=== PATIENT | female | born 1955 | race Caucasian/White ===

== ENCOUNTER → 2020-02-15 10:21 | Outpatient (CLI) | payer OTHER, SELFPAY ==
--- NOTE | ~2020-02-15 | MM_ITS ---
EXAMINATION: MM screening epifanio BI w devi HISTORY: Screening mammogram TECHNIQUE: Craniocaudal and mediolateral oblique 3-D tomosynthesis images were obtained and synthetic 2-D images were generated. CAD analysis was submitted and interpreted. COMPARISON: 10/25/2018 bilateral digital screening mammogram 08/01/2017 bilateral diagnostic digital mammogram 07/22/2017, 06/22/2016 bilateral digital screening mammogram examinations BREAST PARENCHYMAL COMPOSITION: There are scattered areas of fibroglandular density. FINDINGS: Stable fibroglandular asymmetry since 06/22/2016. Scattered numerous bilateral benign-appear ing calcifications. There is no evidence of suspicious mass, calcification, or architectural distorti on to suggest malignancy in either breast. There has been no suspicious interval change. IMPRESSION: 1. No mammographic evidence of malignancy. 2. Recommend routine screening mammography in one year. BI-RADS Category 2: Benign finding(s). Reviewed, dictated and finalized at location A.
== END ==
PROVIDERS: Visit Provider Obstetrics & Gynecology
DX: Z12.31 Encounter for screening mammogram for malignant neoplasm of breast (principal)
CPT/HCPCS: 77063; 77067

== ENCOUNTER → 2021-04-17 09:59 | Outpatient (CLI) | payer MEDICARE, SELFPAY ==
--- NOTE | ~2021-04-17 | MM_ITS ---
EXAMINATION: MM screening epifanio BI w devi HISTORY: Screening mammogram TECHNIQUE: Craniocaudal and mediolateral oblique 3-D tomosynthesis images were obtained and synthetic 2-D images were generated. CAD analysis was submitted and interpreted. COMPARISON: , 10/25/2018, 08/01/2017 bilateral digital screening mammogram examinations BREAST PARENCHYMAL COMPOSITION: There are scattered areas of fibroglandular density. FINDINGS: Stable fibroglandular asymmetry. Occasional benign calcifications. There is no evidence of suspicious mass, calcification, or architectural distortion to suggest malignancy in either breast. T here has been no suspicious interval change. IMPRESSION: 1. No mammographic evidence of malignancy. 2. Recommend routine screening mammography in one year. BI-RADS Category 2: Benign finding(s). Reviewed, dictated and finalized at location A.
== END ==
PROVIDERS: Visit Provider Obstetrics & Gynecology
DX: Z12.31 Encounter for screening mammogram for malignant neoplasm of breast (principal)
CPT/HCPCS: 77063; 77067

== ENCOUNTER → 2022-06-22 10:15 | Outpatient (CLI) | payer MEDICARE, SELFPAY ==
--- NOTE | ~2022-06-22 | MM_ITS ---
EXAMINATION: MM screening epifanio BI w devi HISTORY: Screening mammogram TECHNIQUE: Craniocaudal and mediolateral oblique 3-D tomosynthesis images were obtained and synthetic 2-D images were generated. CAD analysis was submitted and interpreted. COMPARISON: 04/17/2021, 02/15/2020, 10/25/2018 bilateral screening mammogram examinations BREAST PARENCHYMAL COMPOSITION: There are scattered areas of fibroglandular density. FINDINGS: 11 mm circumscribed mass is noted in the lower mid left breast at 6:00 (craniocaudal Tomosy nthesis image 13/79. Approximately 7 mm circumscribed mass is noted anteriorly in the inner mid left breast (craniocaudal Tomosynthesis image 45/79). Diagnostic left mammogram and left breast ultrasound examination are recommended No suspicious mass or significant new or developing density of either breast is noted otherwise. Scat tered bilateral benign calcifications. IMPRESSION: 1. Left breast masses 2. Diagnostic left mammogram and left breast ultrasound examination are recommended. BI-RADS Category 0: Incomplete: Needs additional imaging evaluation. Reviewed, dictated and finalized at location A. IMPRESSION: 1. Left breast masses 2. Diagnostic left mammogram and left breast ultrasound examination are recomme nded. BI-RADS Category 0: Incomplete: Needs additional imaging evaluation.
== END ==
PROVIDERS: PCP Family Medicine; Visit Provider Obstetrics & Gynecology
DX: Z12.31 Encounter for screening mammogram for malignant neoplasm of breast (principal); R92.8 Other abnormal and inconclusive findings on diagnostic imaging of breast
CPT/HCPCS: 77063; 77067

== ENCOUNTER → 2022-06-24 08:07 | Outpatient (CLI) | payer MEDICARE, SELFPAY ==
--- NOTE | ~2022-06-24 | MMUS_ITS ---
EXAMINATION: MM diagnostic epifanio LT w devi, US breast LT complete HISTORY: Left breast masses reported on 06/22/2022 screening mammogram examination TECHNIQUE: Additional 3-D tomosynthesis images of the left breast were performed and synthetic 2-D im ages were generated. CAD analysis was submitted and interpreted. High resolution complete left breast ultrasound including all 4 quadrants and subareolar area was performed. COMPARISON: 06/22/2022 bilateral screening mammogram FINDINGS: MAMMOGRAPHIC FINDINGS: There is heterogeneously dense stroma which partially obscures one or more masses, including 11 mm pa rtially circumscribed mass in the anterior aspect of the lower outer left breast (coned MLO Tomosynth esis image 22/70).. ULTRASOUND: There are multiple scattered simple and complicated cysts, with circumscribed margins, through transm ission, the largest situated at 6:00 0.5 cm from the nipple, measuring up to 1.3 cm approximate maxim al dimension. No suspicious mass or shadowing is detected. IMPRESSION: 1. Benign findings 2. Routine annual mammographic screening is recommended BI-RADS Category 2: Benign finding(s). Reviewed, dictated and finalized at location A. IMPRESSION: 1. Benign findings 2. Routine annual mammographic screening is recommended BI-RADS Category 2: Benign finding(s).
== END ==
PROVIDERS: PCP Family Medicine; Visit Provider Obstetrics & Gynecology
DX: R92.8 Other abnormal and inconclusive findings on diagnostic imaging of breast (principal)
CPT/HCPCS: 76641; 77061; 77065; G0279

== ENCOUNTER 2023-01-11 10:11 | Outpatient (CLI) | payer MEDICARE, SELFPAY ==
[2023-01-11 11:01] LABS: Kit Draw Collected
== END 2023-01-11 10:12 | disposition home or self-care (01) ==
LOC: ANHGOSHLAB 10:13
PROVIDERS: PCP Family Medicine; Visit Provider Family Medicine
DX: E78.5 Hyperlipidemia, unspecified (principal); R73.03 Prediabetes; I10 Essential (primary) hypertension; E66.9 Obesity, unspecified
CPT/HCPCS: 36415

== ENCOUNTER → 2023-06-24 14:38 | Outpatient (CLI) | payer MEDICARE, SELFPAY ==
--- NOTE | ~2023-06-24 | DEXA_ITS ---
Bone Density Report Name: SILVINO KLEIN Age: 68 Sex: Female Ethnicity: White Date of : 1955 Indication: postmenopausal; screening for osteoporosis; height loss; prior fracture; Referring Provider: LOTTIE MONTES Study: Bone densitometry was performed. Exam Date: June 24, 2023 Accession number: [id number] Bone Density: Region BMD T-score Z-score Classification AP Spine (L1, L2, L4) 1.169 1.2 3.2 Normal Femoral Neck (Left) 0.786 -0.6 1.1 Normal Total Hip (Left) 0.959 0.1 1.5 Normal Femoral Neck (Right) 0.779 -0.6 1.1 Normal Total Hip (Right) 0.923 -0.2 1.2 Normal Total Hip Mean 0.941 -0.1 1.4 Normal World Health Organization criteria for BMD impression classify patients as: Normal (T-score at or above -1.0), Osteopenia (T-score between -1.0 and -2.5), or Osteoporosis (T-score at or below -2.5). 10-year Fracture Risk: FRAX not reported because: All T-scores for Spine Total, Hip Total, Femoral Neck at or above -1.0 Previous Exams: Region Exam Age BMD T-score BMD Change BMD Change Date g/cm2 vs Baseline vs Previous AP Spine(L1, L2, L4) 06/24/2023 68 1.169 1.2 0.110 0.110 05/03/2013 58 1.059 0.2 Total Hip(Left) 06/24/2023 68 0.959 0.1 0.056 0.056 05/03/2013 58 0.903 -0.3 Total Hip(Right) 06/24/2023 68 0.923 -0.2 0.082 0.082 05/03/2013 58 0.841 -0.8 *Denotes significance at 95% confidence level, LSC for AP Spine = 0.022 g/cm2, LSC for Total Hip = 0.027 g/cm2 Clinical Information Provided by Patient: Has had a low trauma fracture Has used the following medications: Vitamin D, Calcium Patient maximum height was 62 Menopause Age: 55 Drinks caffeinated beverages Onset of menses at age 11 Number of children 2 Impression: The patient has normal bone mass. The patient has risk factors, including: previous fracture. No significant bone loss was observed. Discussion: BONE DENSITY IS ABOVE THE MINIMUM DESIRABLE LEVEL AT ALL SKELETAL SITES TESTED. This patient?s bone mineral density is above the minimum desirable level (T-score -1.0 or better) at all sites measured. The patient should follow a healthful lifestyle (good nutrition with adequate calcium and vitamin D, and appropriate weight-bearing exercise). Follow-Up: Consider repeating this study in 5 years or sooner if there is some new clinical indication. Reported by: YONATAN on 06/24/2023 3:17:00 PM.
--- NOTE | ~2023-06-24 | MM_ITS ---
EXAMINATION: MM screening epifanio BI w devi HISTORY: Screening TECHNIQUE: Craniocaudal and mediolateral oblique 3-D tomosynthesis images were obtained and synthetic 2-D images were generated. CAD analysis was submitted and interpreted. COMPARISON: Comparison to multiple prior studies sequentially, with oldest reviewed study dated 08/01. BREAST PARENCHYMAL COMPOSITION: Breast composed of scattered areas of fibroglandular density FINDINGS: The right breast is stable without evidence for malignancy. There is a mass in the upper ou ter quadrant of the left breast posteriorly. Otherwise, no significant change to the left breast. The re are benign bilateral breast calcifications. IMPRESSION: 1. Developing left breast mass, upper outer quadrant. 2. Additional mammographic views and possible breast ultrasound are recommended. BI-RADS Category 0: Incomplete: Needs additional imaging evaluation. Reviewed, dictated and finalized at location A. IMPRESSION: 1. Developing left breast mass, upper outer quadrant. 2. Additional mammographic views and possible breast ultrasound are recommended . BI-RADS Category 0: Incomplete: Needs additional imaging evaluation.
== END ==
PROVIDERS: PCP Family Medicine; Visit Provider Obstetrics & Gynecology
DX: Z12.31 Encounter for screening mammogram for malignant neoplasm of breast (principal); Z78.0 Asymptomatic menopausal state; R92.8 Other abnormal and inconclusive findings on diagnostic imaging of breast
CPT/HCPCS: 77063; 77067; 77080

== ENCOUNTER 2023-06-30 08:37 | Outpatient (CLI) | payer MEDICARE, SELFPAY ==
[2023-06-30 17:11] LABS: Alanine Aminotransferase 50 U/L (6-35); Albumin Level 4.2 g/dL (3.5-5.1); Alkaline Phosphatase 110 U/L (38-126); Anion Gap 8 mmol/L (8-16); Aspartate Amino Transferase 51 U/L (14-36); Bilirubin,Total 0.4 mg/dL (0.2-1.3); Blood Urea Nitrogen 21 mg/dL (7-17); Calcium 9.2 mg/dL (8.4-10.2); Carbon Dioxide 32 mmol/L (22-30); Chloride 99 mmol/L (98-107); Cholesterol 147 mg/dL (0-200); Estimated Glomerular Filt Rate > 60; Glucose 106 mg/dL (65-110); HDL Direct 57 mg/dL; Potassium 4.4 mmol/L (3.4-5.0); Sodium 139 mmol/L (137-145); Triglycerides 88 mg/dL (<150)
[2023-06-30 17:22] LABS: LDL Cholesterol Direct 69 mg/dL
[2023-06-30 20:02] LABS: Hemoglobin A1C 5.8 % (<5.7)
== END 2023-06-30 08:38 | disposition home or self-care (01) ==
PROVIDERS: PCP Family Medicine; Visit Provider Family Medicine
DX: R73.9 Hyperglycemia, unspecified (principal); R73.03 Prediabetes; I10 Essential (primary) hypertension; E66.9 Obesity, unspecified
CPT/HCPCS: 36415; 80053; 80061; 83036

== ENCOUNTER → 2023-08-02 09:52 | Outpatient (CLI) | payer MEDICARE, SELFPAY ==
--- NOTE | ~2023-08-02 | MMUS_ITS ---
EXAMINATION: MM diagnostic epifanio LT w devi, US breast LT limited HISTORY: Developing mass reported in upper outer quadrant of left breast on 06/24/2023 screening mammo gram TECHNIQUE: Additional 3-D tomosynthesis images of the left breast were performed and synthetic 2-D im ages were generated. CAD analysis was submitted and interpreted. High resolution left upper outer soo drant breast ultrasound was performed. COMPARISON: 06/24/2023 bilateral screening mammogram FINDINGS: MAMMOGRAPHIC FINDINGS: There is a circumscribed approximately 5 x 7 mm opacity in the posterior upper outer quadrant of the left breast. No suspicious mass or architectural distortion, malignant calcification, skin thickening or retractio n is detected. ULTRASOUND: No suspicious solid lesion or suspicious shadowing is detected. 1:00 8 cm from nipple: Parallel circumscribed sonolucent lesion measuring 6.6 x 2.5 x 7 mm, with thro ugh transmission, benign in appearance 2:00 14 cm from nipple: Parallel circumscribed hypoechoic 4.9 x 6.5 x 4.9 mm lesion without internal vascularity, with through transmission, benign in appearance 2:00 12 cm from nipple: Parallel circumscribed 6.4 x 10.4 x 10.6 mm sonolucency consistent with simpl e cyst 2:00 12 cm from nipple: 2.2 x 4.6 x 3.9 mm cyst 2:00 9 cm from nipple: Parallel circumscribed sonolucent 2.4 x 6.1 x 4.4 mm lesion, benign in appeara nce 3:00 5 cm from nipple: Parallel oval circumscribed 3 x 4.2 x 2.4 mm sonolucent lesion Subareolar: 6.5 x 9.7 x 9.4 mm sonolucency consistent with simple cyst IMPRESSION: 1. Benign findings 2. Routine annual mammographic screening is recommended BI-RADS Category 2: Benign finding(s). Reviewed, dictated and finalized at location A. IMPRESSION: 1. Benign findings 2. Routine annual mammographic screening is recommended BI-RADS Category 2: Benign finding(s).
== END ==
PROVIDERS: PCP Family Medicine; Visit Provider Obstetrics & Gynecology
DX: R92.8 Other abnormal and inconclusive findings on diagnostic imaging of breast (principal)
CPT/HCPCS: 76642; 77061; 77065; G0279

== ENCOUNTER 2023-12-08 08:35 | Outpatient (CLI) | payer MEDICARE, SELFPAY ==
[2023-12-08 13:12] LABS: Hematocrit 40.9 % (37.0-47.0); Hemoglobin 13.1 g/dL (12.0-15.0); Mean Corpuscular Hemoglobin 32.6 pg (26-34); Mean Corpuscular Volume 101.7 fl (80-100); Mean Platelet Volume 10.3 fl (7.4-10.4); Platelet Count Result 260 k/mm3 (150-375); Red Blood Count 4.02 M/mm3 (4.2-5.4); Red Cell Distribution Width 12.3 % (11.5-14.5); White Blood Count 5.9 K/mm3 (4.5-10.0)
[2023-12-08 13:36] LABS: Hemoglobin A1C 6.1 % (<5.7)
[2023-12-08 13:39] LABS: Alanine Aminotransferase 52 U/L (6-35); Albumin Level 4.3 g/dL (3.5-5.1); Alkaline Phosphatase 100 U/L (38-126); Anion Gap 5 mmol/L (8-16); Aspartate Amino Transferase 64 U/L (14-36); Bilirubin,Total 0.6 mg/dL (0.2-1.3); Blood Urea Nitrogen 23 mg/dL (7-17); Calcium 9.6 mg/dL (8.4-10.2); Carbon Dioxide 32 mmol/L (22-30); Chloride 102 mmol/L (98-107); Cholesterol 150 mg/dL (0-200); Estimated Glomerular Filt Rate > 60; Glucose 87 mg/dL (65-110); HDL Direct 53 mg/dL; Potassium 4.4 mmol/L (3.4-5.0); Sodium 139 mmol/L (137-145); Triglycerides 117 mg/dL (<150)
[2023-12-08 13:49] LABS: LDL Cholesterol Direct 73 mg/dL
== END 2023-12-08 08:36 | disposition home or self-care (01) ==
PROVIDERS: PCP Family Medicine; Visit Provider Family Medicine
DX: E78.5 Hyperlipidemia, unspecified (principal); R73.03 Prediabetes; I10 Essential (primary) hypertension; E66.9 Obesity, unspecified
CPT/HCPCS: 36415; 80053; 80061; 83036; 84443; 85027

== ENCOUNTER → 2023-12-13 08:24 | Outpatient (CLI) | payer MEDICARE, SELFPAY ==
--- NOTE | ~2023-12-13 | US_ITS ---
EXAMINATION: US right upper quadrant DATE: 12/13/2023 08:49 INDICATION: Abnormal levels of other serum enzymes. TECHNIQUE: Multiple grayscale and Doppler ultrasound images of the abdomen were obtained. COMPARISON: Ultrasound 02/18/2006 FINDINGS: The visualized portions of the head of the pancreas are normal. There is diffuse hepatic st eatosis. No liver surface nodularity. There is normal flow in main portal vein. The gallbladder is ab sent. The common duct is normal and measures 5 mm. IMPRESSION: 1. Diffuse hepatic steatosis. Reviewed, dictated and finalized at location A. T HAND
== END ==
PROVIDERS: PCP Family Medicine; Visit Provider Family Medicine
DX: K76.0 Fatty (change of) liver, not elsewhere classified (principal); R74.8 Abnormal levels of other serum enzymes
CPT/HCPCS: 76705

== ENCOUNTER 2024-03-12 11:44 | Emergency (ER) | payer MEDICARE, SELFPAY ==
[2024-03-12 11:55] VITALS: BP 168/99; PULSE 73; RESP 15; TEMP 36.3; O2SAT 100
--- NOTE | 2024-03-12 11:58 | ED.FEMALEGU ---
HPI - Female Genitourinary General Chief complaint: Urogenital-Female Stated complaint: Uti Symptoms Time Seen by Provider: 03/12/24 11:59 Source: patient, RN notes reviewed and old records reviewed Mode of arrival: ambulatory Limitations: no limitations History of Present Illness HPI Narrative: A 68-year-old female presents to the [facility] with concerns for a UTI. Patient reports since Tuesday, 3 days has had burning that has been increasing, frequency, urgency in the feeling that she is not completely emptying her bladder. States that when she does go it is just a very small amount Denies any abdominal pain, flank pain. No CVA tenderness. Denies fevers, nausea, vomiting. Onset (ago): day(s) (3) Related Data Home Medications Medication Instructions Recorded Confirmed calcium carbonate (Calcium 600) 600 mg PO DAILY 01/03/20 03/12/24 cholecalciferol (vitamin D3) 100 4,000 unit PO DAILY 01/03/20 03/12/24 mcg (4,000 unit) capsule ferrous fumarate 325 mg (106 mg 325 mg PO DAILY 01/15/21 03/12/24 iron) tablet (Ferretts) Saccharomyces boulardii 250 mg 250 mg PO BID 01/28/22 03/12/24 capsule (Daily Probiotic (S. boulardii)) magnesium 250 mg tablet 250 mg PO DAILY 01/30/24 03/12/24 potassium gluconate 500 mg (83 mg) 500 mg PO DAILY 01/30/24 03/12/24 tablet Allergies Allergy/AdvReac Type Severity Reaction Status Date / Time Sulfa (Sulfonamide Allergy Unknown Rash Verified 03/12/24 12:05 Antibiotics) Review of Systems Review of Systems: All systems reviewed & are unremarkable except as noted in HPI and below Constitutional: Constitutional: Reports no additional constitutional complaints Eyes: Eyes: Reports no additional eye complaints ENT: Reports system reviewed and no additional complaints, except as documented Cardiovascular: Cardiovascular: Reports no additional cardiovascular complaints, Denies chest pain and Denies dyspnea Respiratory: Respiratory: Reports no additional respiratory complaints, Denies chest congestion, Denies cough and Denies dyspnea Gastrointestinal: Gastrointestinal: Reports no additional gastrointestinal complaints, Denies abdominal pain, Denies nausea and Denies vomiting Genitourinary: Genitourinary: Reports as per HPI and Reports dysuria Musculoskeletal: Musculoskeletal: Reports no additional musculoskeletal complaints Integumentary/Breasts: Skin/Breast: Reports system reviewed and no additional complaints, except as docu Neurologic: Reports system reviewed and no additional complaints, except as documented Psychiatric: Psychiatric: Reports no additional psychiatric complaints Allergic/Immunologic: Allergic/Immunologic: Reports no additional allergic/immunologic complaints PMFSH Past Medical History Medical History Acid reflux High cholesterol History of vaginal delivery x 2 Hypertension Normal colonoscopy Seropositive rheumatoid arthritis Sixth nerve palsy Stroke Surgical History Surgical History History of cholecystectomy History of endometrial ablation History of gastric surgery Family History Family History Sibling Hypertension Father Family history of malignant neoplasm of stomach Hypertension Cerebrovascular accident, Onset Age: 70 Grandparent Malignant neoplasm of prostate Family history of malignant neoplasm of breast Family history of cardiovascular disease Family history of malignant neoplasm of breast in first degree relative Mother Cerebrovascular accident Hypertension Other Family history of hearing loss Social History Social History Social History: Caffeine-daily coffee Smoking status: Never smoker Alcohol intake: current Alcohol use details: occasionally-wine Substance use: never Lack of Tra
== END 2024-03-12 12:33 | disposition home or self-care (01) ==
PROVIDERS: Emergency Provider Nurse Practitioner; PCP Family Medicine
DX: N39.0 Urinary tract infection, site not specified (principal); I10 Essential (primary) hypertension
CPT/HCPCS: 81003; 87077; 87086; 87088; 87186; 99213; G0463

== ENCOUNTER 2024-05-17 09:36 | Outpatient (CLI) | payer MEDICARE, SELFPAY ==
[2024-05-17 10:25] LABS: Hematocrit 41.6 % (37.0-47.0); Hemoglobin 13.6 g/dL (12.0-15.0); Mean Corpuscular HGB Conc 32.7 g/dl (32-36); Mean Corpuscular Hemoglobin 32.6 pg (26-34); Mean Corpuscular Volume 99.8 fl (80-100); Mean Platelet Volume 10.3 fl (7.4-10.4); Platelet Count Result 248 k/mm3 (150-375); Red Blood Count 4.17 M/mm3 (4.2-5.4); Red Cell Distribution Width 12.2 % (11.5-14.5); White Blood Count 6.3 K/mm3 (4.5-10.0)
[2024-05-17 10:46] LABS: Alanine Aminotransferase 51 U/L (6-35); Albumin Level 4.4 g/dL (3.5-5.1); Alkaline Phosphatase 101 U/L (38-126); Anion Gap 9 mmol/L (4-12); Aspartate Amino Transferase 60 U/L (14-36); Bilirubin,Total 0.6 mg/dL (0.2-1.3); Blood Urea Nitrogen 17 mg/dL (7-17); Calcium 9.7 mg/dL (8.4-10.2); Carbon Dioxide 30 mmol/L (22-30); Chloride 100 mmol/L (98-107); Cholesterol 144 mg/dL (0-200); Estimated Glomerular Filt Rate > 60; Glucose 109 mg/dL (65-110); HDL Direct 51 mg/dL; Potassium 4.3 mmol/L (3.4-5.0); Sodium 139 mmol/L (137-145); Triglycerides 142 mg/dL (<150)
[2024-05-17 10:58] LABS: LDL Cholesterol Direct 69 mg/dL
[2024-05-17 12:33] LABS: Hemoglobin A1C 5.7 % (<5.7)
== END 2024-05-17 09:37 | disposition home or self-care (01) ==
PROVIDERS: PCP Family Medicine; Visit Provider Family Medicine
DX: E78.5 Hyperlipidemia, unspecified (principal); R74.8 Abnormal levels of other serum enzymes; R73.03 Prediabetes; I10 Essential (primary) hypertension; E66.9 Obesity, unspecified
CPT/HCPCS: 36415; 80053; 80061; 83036; 84443; 85027

== ENCOUNTER 2024-08-14 09:39 | Outpatient (CLI) | payer MEDICARE, SELFPAY ==
[2024-08-14 14:40] LABS: Alanine Aminotransferase 33 U/L (6-35); Albumin Level 4.3 g/dL (3.5-5.1); Alkaline Phosphatase 100 U/L (38-126); Anion Gap 6 mmol/L (4-12); Aspartate Amino Transferase 76 U/L (14-36); Bilirubin,Total 0.6 mg/dL (0.2-1.3); Blood Urea Nitrogen 25 mg/dL (7-17); Calcium 9.8 mg/dL (8.4-10.2); Carbon Dioxide 31 mmol/L (22-30); Chloride 103 mmol/L (98-107); Cholesterol 145 mg/dL (0-200); Estimated Glomerular Filt Rate > 60; Glucose 98 mg/dL (65-110); HDL Direct 54 mg/dL; Potassium 4.6 mmol/L (3.4-5.0); Sodium 140 mmol/L (137-145); Triglycerides 96 mg/dL (<150)
[2024-08-14 14:46] LABS: Hematocrit 42.2 % (37.0-47.0); Hemoglobin 13.5 g/dL (12.0-15.0); Mean Corpuscular Hemoglobin 32.9 pg (26-34); Mean Corpuscular Volume 102.9 fl (80-100); Mean Platelet Volume 10.3 fl (7.4-10.4); Platelet Count Result 256 k/mm3 (150-375); Red Cell Distribution Width 12.5 % (11.5-14.5)
[2024-08-14 14:51] LABS: LDL Cholesterol Direct 51 mg/dL
[2024-08-14 17:35] LABS: Hemoglobin A1C 5.6 % (<5.7)
== END 2024-08-14 09:40 | disposition home or self-care (01) ==
PROVIDERS: PCP Family Medicine; Visit Provider Family Medicine
DX: E78.5 Hyperlipidemia, unspecified (principal); R74.8 Abnormal levels of other serum enzymes; R73.03 Prediabetes; I10 Essential (primary) hypertension; E66.9 Obesity, unspecified
CPT/HCPCS: 36415; 80053; 80061; 83036; 84443; 85027

== ENCOUNTER 2024-08-15 12:35 | Outpatient (CLI) | payer MEDICARE, SELFPAY ==
--- NOTE | ~2024-08-15 | MM_ITS ---
EXAMINATION: MM screening epifanio BI w devi HISTORY: Screening TECHNIQUE: Craniocaudal and mediolateral oblique 3-D tomosynthesis images were obtained and synthetic 2-D images were generated. CAD analysis was submitted and interpreted. COMPARISON: Comparison to multiple prior studies sequentially, with oldest reviewed study dated 02/14. BREAST PARENCHYMAL COMPOSITION: Not dense: There are scattered areas of fibroglandular density. FINDINGS: The right breast is stable without evidence for malignancy. There are developing masses in the upper outer quadrant of the left breast. IMPRESSION: 1. Developing masses upper outer quadrant of the left breast, posterior third. 2. Additional mammographic views and possible breast ultrasound are recommended. BI-RADS Category 0: Incomplete: Needs additional imaging evaluation. Reviewed, dictated and finalized at location B. IMPRESSION: 1. Developing masses upper outer quadrant of the left breast, posterior third. 2. Additional mammographic views and possible breast ultrasound are recommended . BI-RADS Category 0: Incomplete: Needs additional imaging evaluation.
== END 2024-08-15 12:36 | disposition home or self-care (01) ==
LOC: MICIMG 12:36
PROVIDERS: PCP Family Medicine; Visit Provider Obstetrics & Gynecology
DX: N63.21 Unspecified lump in the left breast, upper outer quadrant (principal); Z12.31 Encounter for screening mammogram for malignant neoplasm of breast
CPT/HCPCS: 77063; 77067

== ENCOUNTER 2024-09-04 09:49 | Outpatient (CLI) | payer MEDICARE, SELFPAY ==
--- NOTE | ~2024-09-04 | MMUS_ITS ---
EXAMINATION: MM diagnostic epifanio LT w devi, US breast LT limited HISTORY: Upper, outer left breast masses TECHNIQUE: Additional 3-D tomosynthesis images of the left breast were performed and synthetic 2-D im ages were generated. CAD analysis was submitted and interpreted. High resolution limited left breast ultrasound was performed. COMPARISON: 08/02/2023, 06/24/2023, 06/24/2022 BREAST PARENCHYMAL COMPOSITION:Not Dense. There are scattered areas of fibroglandular density. FINDINGS: MAMMOGRAPHIC FINDINGS: Spot compression views confirm 2 adjacent ovoid masses at the posterior, upper, outer left breast. Th is is a relatively stable as compared to prior exams. ULTRASOUND: At the 2:00 position left breast, 13 cm from the nipple, there is a 1.1 x 0.8 x 1.1 cm anechoic simpl e cyst, wider than tall, with posterior through transmission. At the 1:00 position left breast, 9 cm in the nipple, there is a 0.7 x 0.7 x 0.3 cm wide than tall circumscribed hypoechoic, possibly cystic mass, with posterior through transmission. There is an additional 1.0 cm simple cyst at the 2:00 pos ition, 14 cm from nipple. IMPRESSION: Benign cysts/masses at the posterior, upper, outer, left breast, as detailed above. No evidence for malignancy. BI-RADS Category 2: Benign finding(s). Reviewed, dictated and finalized at location . IMPRESSION: Benign cysts/masses at the posterior, upper, outer, left breast, as detailed a jolene. No evidence for malignancy. BI-RADS Category 2: Benign finding(s).
== END 2024-09-04 09:50 | disposition home or self-care (01) ==
LOC: MICIMG 09:50
PROVIDERS: PCP Family Medicine; Visit Provider Obstetrics & Gynecology
DX: N60.12 Diffuse cystic mastopathy of left breast (principal); R92.8 Other abnormal and inconclusive findings on diagnostic imaging of breast
CPT/HCPCS: 76642; 77061; 77065; G0279

== ENCOUNTER 2024-09-14 11:47 | Emergency (ER) | payer MEDICARE, SELFPAY ==
[2024-09-14 11:59] VITALS: BP 135/86; PULSE 70; RESP 17; TEMP 36.4; O2SAT 97
--- NOTE | 2024-09-14 12:06 | ED.URI ---
HPI - URI/Sore Throat General Chief Complaint: Upper Respiratory Infection Stated Complaint: chest congestion Time Seen by Provider: 09/14/24 12:53 Source: patient and RN notes reviewed Mode of arrival: ambulatory Limitations: no limitations History of Present Illness HPI Narrative: 69-year-old female presents with concern for cough, chest congestion, hoarse voice for 5 days. Reports exposure to her granddaughter who had pneumonia. She denies fever, aches, chills, sweats MD elicited complaint: cough Related Data Home Medications Medication Instructions Recorded Confirmed calcium carbonate (Calcium 600) 600 mg PO DAILY 01/03/20 08/14/24 cholecalciferol (vitamin D3) 100 4,000 unit PO DAILY 01/03/20 08/14/24 mcg (4,000 unit) capsule ferrous fumarate 325 mg (106 mg 325 mg PO DAILY 01/15/21 08/14/24 iron) tablet (Ferretts) Saccharomyces boulardii 250 mg 250 mg PO BID 01/28/22 08/14/24 capsule (Daily Probiotic (S. boulardii)) magnesium 250 mg tablet 250 mg PO DAILY 01/30/24 08/14/24 potassium gluconate 500 mg (83 mg) 500 mg PO DAILY 01/30/24 08/14/24 tablet Allergies Allergy/AdvReac Type Severity Reaction Status Date / Time Sulfa (Sulfonamide Allergy Unknown Rash Verified 09/14/24 12:12 Antibiotics) Review of Systems Review of Systems: CONSTITUTIONAL: Denies malaise, chills, sweats, or fever. EYES: Denies visual changes, redness, or discharge. ENT: Reports rhinorrhea, congestion, hoarse voice, sore throat CARDIOVASCULAR: Denies chest pain, palpitations, or edema. RESPIRATORY: Reports cough and chest congestion. Denies dyspnea. GASTROINTESTINAL: Denies abdominal pain, nausea, vomiting, diarrhea SKIN: Denies rash or itching. MUSCULOSKELETAL: Denies myalgia. NEUROLOGIC: Denies headache. All systems reviewed & are unremarkable except as noted in HPI and below PMFSH Past Medical History Medical History Acid reflux High cholesterol History of vaginal delivery x 2 Hypertension Normal colonoscopy Seropositive rheumatoid arthritis Sixth nerve palsy Stroke Surgical History Surgical History History of cholecystectomy History of endometrial ablation History of gastric surgery Family History Family History Sibling Hypertension Father Family history of malignant neoplasm of stomach Hypertension Cerebrovascular accident, Onset Age: 70 Grandparent Malignant neoplasm of prostate Family history of malignant neoplasm of breast Family history of cardiovascular disease Family history of malignant neoplasm of breast in first degree relative Mother Cerebrovascular accident Hypertension Other Family history of hearing loss Social History Social History Social History: Caffeine-daily coffee Smoking status: Never smoker Alcohol intake: current Alcohol use details: occasionally-wine Substance use: never Lack of Transportation: No Lack of Food: Never True Current Housing: I Have Housing Concerned About Future Housing: No Difficulty Paying Gas/Electric Bills: No Difficulty Paying for Meds: No Currently Unemployed: No Education: Master's Degree or Higher Difficulty w/ Childcare or Family Care: No Living arrangements: alone Occupation/Education: retired Gender identity (if verbalized by the patient): Female Sexual Orientation (if Verbalized by the Patient): Straight or Heterosexual Spiritual care concerns: No Agree to blood products: Yes Comments At time of signature, agree with nursing past medical, surgical, social and family history. There is no relevant family history pertinent to the presenting complaint Exam Narrative: GENERAL: Nontoxic-appearing, well-nourished, and in no acute distress. HEAD: Normocephalic EYES: PERRLA, conjunctivae clear ENT: Nares clear. Mucous membranes moist. TM pearly rae with dull light reflex bilaterally; no tragal tenderness. Oropharynx not erythematous without lesions. Tonsils not enlarged and without exudate, no drooling, no hoarseness, no trismus, uvula midline. NECK: Supple. No lymphadenopathy CHEST: Clear to auscultation, breath sounds equal. No wheezing, rhonchi, rales, or stridor. No respiratory distress, speaks in full sentences. HEART: Regular rate and rhythm. No murmur heard. SKIN: Warm, dry, no rash. NEURO: Alert and oriented x3. PSYCH: Normal mood and affect Course Course Emergency Course: Patient is aware of diagnosis, understands and agrees to treatment plan. Anticipatory guidance given. Patient agrees to follow-up as directed and is aware of reasons to seek care at the emergency department. Portions of this record may have been created with voice recognition software Level of Care: Express Care Visit Vital Signs Vital signs: Vital Signs Temperature 97.5 F L 09/14/24 11:59 Pulse Rate 70 09/14/24 11:59 Respiratory Rate 17 09/14/24 11:59 Blood Pressure 135/86 09/14/24 11:59 Pulse Oximetry 97 09/14/24 11:59 Temperature 97.5 F L 09/14/24 11:59 Pulse Rate 70 09/14/24 11:59 Respiratory Rate 17 09/14/24 11:59 Blood Pressure 135/86 09/14/24 11:59 Pulse Oximetry 97 09/14/24 11:59 Reviewed. MDM - URI/Sore Throat MDM Narrative Medical decision making narrative: Differential diagnosis considered: Viveros virus, strep pharyngitis, allergic rhinitis, upper respiratory tract infection, sinusitis, rhinosinusitis, nasopharyngitis. viral pharyngitis, otitis media, otitis externa, pneumonia, bronchitis, viral cough syndrome, viral syndrome, and influenza. Exam findings show no acute concerns or changes; patient is non-toxic appearing and is in no distress. Patient is appropriate for outpatient treatment and follow-up. Lab Data Attestation: I reviewed the patient's lab results. Critical Care Time Critical Care Time Critical Care Time: No Discharge Plan Discharge Clinical Impression: Lower respiratory tract infection Patient Disposition: Home, Self-Care Condition: Stable Instructions: Antibiotic Form, Acute Bronchitis (ED) Additional Instructions: Take medications as prescribed Recommend antihistamine such as Benadryl at night time and Zyrtec or Anna during the day Also, recommend symptomatic treatment includes: rest, fluids, and increase humidity of the air at home. Recommend Acetaminophen as directed on the bottle to reduce fever, pain, headache. Avoid smoking/second-hand smoke. Please schedule a follow-up visit with your personal physician for further evaluation and treatment within 3-5days. If your symptoms persist, change or worsen significantly before you can contact your personal physician then please, without delay, go to the emergency department for further evaluation. Prescriptions: New azithromycin [Zithromax Z-Gurpreet] 250 mg tablet See Rx Instructions .ROUTE .COMPLEX Qty: 6 0RF Rx Instructions: take 500 mg today (day 1), then 250 mg for 4 days (days 2-5) methylprednisolone [Medrol (Gurpreet)] 4 mg tablets,dose pack See Rx Instructions .ROUTE .COMPLEX Qty: 21 0RF Rx Instructions: orally per package directions No Action Ferretts 325 mg (106 mg iron) tablet 325 mg PO DAILY albuterol sulfate [Ventolin HFA] 90 mcg/actuation HFA aerosol inhaler 2 puff inhalation Q4H PRN (Reason: shortness of breath or wheezing) Qty: 18 0RF potassium gluconate 500 mg (83 mg) tablet 500 mg PO DAILY magnesium 250 mg tablet 250 mg PO DAILY calcium carbonate [Calcium 600] 600 mg calcium (1,500 mg) tablet 600 mg PO DAILY cholecalciferol (vitamin D3) 4,000 unit capsule 4,000 unit PO DAILY Saccharomyces boulardii [Daily Probiotic (S. boulardii)] 250 mg capsule 250 mg PO BID nystatin 100,000 unit/gram cream 1 applic topical BID Qty: 60 4RF alprazolam 0.25 mg tablet 0.25 mg PO QHS PRN (Reason: sleep) 90 Days Qty: 90 0RF rosuvastatin 10 mg tablet See Rx Instructions .ROUTE .COMPLEX Qty: 90 1RF Dose Instruction: TAKE ONE TABLET BY MOUTH ONCE DAILY Rx Instructions: TAKE ONE TABLET BY MOUTH ONCE DAILY metoprolol tartrate 25 mg tablet See Rx Instructions .ROUTE .COMPLEX Qty: 180 1RF Dose Instruction: TAKE ONE TABLET BY MOUTH TWICE A DAY Rx Instructions: TAKE ONE TABLET BY MOUTH TWICE A DAY buspirone 5 mg tablet See Rx Instructions .ROUTE .COMPLEX Qty: 180 1RF Dose Instruction: TAKE ONE TABLET BY MOUTH TWICE A DAY Rx Instructions: TAKE ONE TABLET BY MOUTH TWICE A DAY clopidogrel 75 mg tablet See Rx Instructions .ROUTE .COMPLEX Qty: 90 1RF Dose Instruction: TAKE ONE TABLET BY MOUTH ONCE DAILY Rx Instructions: TAKE ONE TABLET BY MOUTH ONCE DAILY Zepbound 15 mg/0.5 mL pen injector 15 mg subcut WEEKLY Qty: 6 1RF Follow-up/Referrals: Maria Elena Gaffney DO [Primary Care Provider] - Time of Disposition: 13:00
== END 2024-09-14 13:02 | disposition home or self-care (01) ==
PROVIDERS: Emergency Provider Nurse Practitioner; PCP Family Medicine
DX: J22 Unspecified acute lower respiratory infection (principal); E78.00 Pure hypercholesterolemia, unspecified; I10 Essential (primary) hypertension; K21.9 Gastro-esophageal reflux disease without esophagitis; M05.9 Rheumatoid arthritis with rheumatoid factor, unspecified; Z86.73 Personal history of transient ischemic attack (TIA), and cerebral infarction without residual deficits
CPT/HCPCS: 99213; G0463

== ENCOUNTER 2024-09-28 13:33 | Outpatient (CLI) | payer MEDICARE, SELFPAY ==
--- NOTE | ~2024-09-28 | XR_ITS ---
EXAMINATION: XR shoulder RT min 2V DATE: 09/28/2024 13:54 INDICATION: Right shoulder pain. TECHNIQUE: 4 views of right shoulder were obtained. COMPARISON: None. FINDINGS: Alignment is normal at the shoulder. No fracture. There is mild osteoarthritis of glenohume ral joint and severe osteoarthritis of acromioclavicular joint. There is mild calcific tendinitis of the rotator cuff. IMPRESSION: 1. Polyarticular osteoarthritis. 2. Mild calcific tendinitis of the rotator cuff. Reviewed, dictated and finalized at location A. ITY BAGGER
--- NOTE | ~2024-09-28 | XR_ITS ---
EXAMINATION: XR shoulder LT min 2V DATE: 09/28/2024 13:54 INDICATION: Left shoulder pain. TECHNIQUE: 4 views of left shoulder were obtained. COMPARISON: None. FINDINGS: Alignment is normal. No fracture. There is mild osteoarthritis of glenohumeral joint and ac romioclavicular joint. IMPRESSION: 1. Mild polyarticular osteoarthritis. Reviewed, dictated and finalized at location A. EXAMINER
== END 2024-09-28 13:34 | disposition home or self-care (01) ==
PROVIDERS: PCP Family Medicine; Visit Provider Physical Medicine & Rehabilitation Pain Medicine
DX: M19.011 Primary osteoarthritis, right shoulder (principal); M75.31 Calcific tendinitis of right shoulder; M19.012 Primary osteoarthritis, left shoulder
CPT/HCPCS: 73030

== ENCOUNTER 2024-10-23 16:01 | Outpatient (CLI) | payer MEDICARE, SELFPAY ==
[2024-10-23 20:40] LABS: Influenza A QL RT-PCR Negative (Negative); Influenza B QL RT-PCR Negative (Negative); RSV RNA, RT-PCR Negative (Negative); SARS-CoV-2 RNA PCR Positive (Negative)
== END 2024-10-23 16:02 | disposition home or self-care (01) ==
PROVIDERS: PCP Family Medicine; Visit Provider Nurse Practitioner
DX: R50.9 Fever, unspecified (principal)
CPT/HCPCS: 87637

== ENCOUNTER 2025-01-09 07:59 | Outpatient (CLI) | payer MEDICARE, SELFPAY ==
--- OUTSIDE RECORDS SUMMARY | 2025-01-09 08:09 | XMS_ITS | Clinical Summary ---
Author Organization [facility] Address [address] Miken: Jeromy Prelude ADT [place] [id number] Care Team Providers Care Functional Manager Name Role Phone Unavailable Primary Care Provider Unavailabl e Medications ALPRAZolam (XANAX) 0.25 mg tablet Take 1 Tablet (0.25 mg) by mouth daily at bedtime as needed for sleep. 30 Tablet 2 1:09 PM CDT 06/10/20 22 Active nystatin (MYCOSTATIN) 100,000 unit/gram Cream APPLY TO THE AFFECTED AREA TWICE DAILY. 60 Gram 3 6:01 PM CDT 07/04/20 23 Active metoprolol tartrate (LOPRESSOR) 25 mg tablet Take 1 Tablet (25 mg) by mouth 2 times daily. 180 Tablet 1 3 4:14 PM SALES REPRESENTATIVE [employer] 07/07/20 23 Active busPIRone (BUSPAR) 5 mg tablet Take 1 Tablet (5 mg) by mouth 2 times daily. 180 Tablet 1 3 4:14 PM SALES REPRESENTATIVE [employer] 07/07/20 23 Active ALPRAZolam (XANAX) 0.25 mg tablet Take 1 Tablet (0.25 mg) by mouth nightly as needed for sleep. 45 Tablet 3 4:14 PM SALES REPRESENTATIVE [employer] 10/06/20 23 Active tirzepatide, weight loss, (Zepbound) 2.5 mg/0.5 mL Pen Injector INJECT 2.5 MG UNDER THE SKIN ONCE WEEKLY FOR 4 WEEKS 2 mL 4 2:01 PM SALES REPRESENTATIVE [employer] 12/08/19 24 Active tirzepatide, weight loss, (Zepbound) 5 mg/0.5 mL Pen Injector Inject 5 mg by subcutaneous injection every 7 days. 2 mL 4 2:42 PM SALES REPRESENTATIVE [employer] 01/09/20 24 Active tirzepatide, weight loss, (Zepbound) 7.5 mg/0.5 mL Pen Injector Inject 7.5 mg by subcutaneous injection every 7 days. 6 mL 4 8:54 AM CDT 03/05/20 24 Active nystatin (MYCOSTATIN) 100,000 unit/gram Cream APPLY TOPICALLY TO AFFECTED AREA(S) TWICE DAILY. 60 Gram 4 4:02 PM CDT 03/08/20 24 Active tirzepatide, weight loss, (Zepbound) 5 mg/0.5 mL Pen Injector Inject 5 mg by subcutaneous injection every 7 days. 2 mL 4 5:59 PM CDT 03/26/20 24 Active tirzepatide, weight loss, (Zepbound) 10 mg/0.5 mL Pen Injector Inject 10 mg by subcutaneous injection every 7 days. 2 mL 4 1:25 PM CDT 06/05/20 24 Active metoprolol tartrate (LOPRESSOR) 25 mg tablet TAKE ONE TABLET BY MOUTH TWICE A DAY 180 Tablet 1 4 11:25 AM SALES REPRESENTATIVE [employer] 07/06/20 24 Active busPIRone (BUSPAR) 5 mg tablet TAKE ONE TABLET BY MOUTH TWICE A DAY 180 Tablet 1 4 11:25 AM SALES REPRESENTATIVE [employer] 07/06/20 24 Active ALPRAZolam (XANAX) 0.25 mg tablet Take 1 Tablet (0.25 mg) by mouth nightly as needed for sleep. 90 Tablet 4 12:53 PM CDT 07/06/20 24 Active tirzepatide, weight loss, (Zepbound) 12.5 mg/0.5 mL Pen Injector Inject 12.5 mg by subcutaneous injection every 7 days. 2 mL 4 3:44 PM CDT 08/01/20 24 Active nystatin (MYCOSTATIN) 100,000 unit/gram Cream Apply topically twice a day. 60 Gram 4 5 2:30 PM SALES REPRESENTATIVE [employer] 08/14/20 24 Active tirzepatide (Mounjaro) 15 mg/0.5 mL Pen Injector Inject 15 mg by subcutaneous injection every 7 days. 2 mL 08/22/20 24 Active clopidogreL (PLAVIX) 75 mg Tablet Take 1 Tablet (75 mg) by mouth daily. 90 Tablet 1 5 3:57 PM SALES REPRESENTATIVE [employer] 08/24/20 24 Active methylPREDNIS olone (MEDROL DOSPACK) 4 mg Tablets, Dose Pack TAKE DIRECTED 21 Each 4 4:24 PM SALES REPRESENTATIVE [employer] 09/14/20 24 Active tiZANidine (ZANAFLEX) 4 mg Tablet Take 1 Tablet (4 mg) by mouth at bedtime as needed. 30 Tablet 3 5 12:39 PM SALES REPRESENTATIVE [employer] 09/18/20 24 Active tirzepatide, weight loss, (Zepbound) 15 mg/0.5 mL Pen Injector Inject 15 mg by subcutaneous injection every 7 days. 6 mL 5 5 3:57 PM SALES REPRESENTATIVE [employer] 12/17/19 25 Active rosuvastatin (CRESTOR) 10 mg tablet TAKE ONE TABLET BY MOUTH ONCE DAILY 90 Tablet 1 5 4:31 PM SALES REPRESENTATIVE [employer] 01/03/20 25 Active ALPRAZolam (XANAX) 0.25 mg tablet Take 1 Tablet (0.25 mg) by mouth daily at bedtime as needed for sleep. 90 Tablet 01/08/20 25 Active rosuvastatin (CRESTOR) 10 mg tablet TAKE ONE TABLET BY MOUTH ONCE DAILY 90 Tablet 1 4 11:25 AM SALES REPRESENTATIVE [employer] 07/06/20 24 025 Discontinued(R toaner) tirzepatide, weight loss, (Zepbound) 15 mg/0.5 mL Pen Injector Inject 15 mg by subcutaneous injection once weekly 6 mL 6 4 3:39 PM SALES REPRESENT[employer]IVE [employer] 09/25/20 24 025 Discontinued Immunizations Immunization Administration Dates Next Due (ADACEL/BOOSTRIX)(10 YR UP) TDAP VACCINE, 0.5ML, IM 07/04/2023 INFLUENZA VACCINE HIGH DOSE QUADRIVALENT 65 YR UP PF IM 08/29/2023,09/01/2022 INFLUENZA VACCINE HIGH DOSE TRIVALENT SPLIT VIRUS, (65 YR UP), 0.5ML (PF), IM 08/15/2024 Social History Tobacco Use Types Packs/Day Years Used Date Smoking Tobacco: Never Assessed Comments Unknown Sex and Gender Information Value Date Recorded Sex Assigned at Not on file Legal Sex Female 3:27 PM CDT Gender Identity Not on file Sexual Orientation Not on file Plan of Treatment Health Maintenance Due Date Last Done Comments BREAST CANCER SCREENING 1995 COLORECTAL SCREENING 2000 Colorectal Cancer Screening 2000 FIT-DNA Q 3 years 2000 FIT/FOBT Q 1 year 2000 Flex Sig/CT Colonography Q 5 years 2000 PNEUMOCOCCAL VACCINE 50+ YEA RS (1 of 1 - PCV) 2005 ZOSTER VACCINE (1 of 2) 2005 OSTEOPOROSIS SCREENING 2020 RSV VACCINE (60+ or ) (1 - 1-dose 75+ series) 2030 DTAP/TDAP/TD VACCINES (2 - T d or Tdap) 07/04/2033 07/04/2023 INFLUENZA VACCINE Completed 08/15/2024, , 09/01/2022 Insurance RX [employer] (INTERNAL) [facility] RX [employer] Medicare Part D
--- OUTSIDE RECORDS SUMMARY | 2025-01-09 08:09 | XMS_ITS | Continuity of Care Document ---
Author Name Auto Generated, Auto Generated Organization [facility] Support Name Relationship Address Phone [facility] [place] [facility] Contact [address] [place] [address] Unavailable Johanna England Self [address] [place] [address] Johanna England Financial Responsible Republican [address] [place] [address] Archana Jimenez Emergency Contact [address] [place] [address] Summary Purpose Consult/Referral Allergies, Adverse Reactions, Alerts No Known Allergies Medications No Known Medications Conditions/Problems No Known Problems Procedures No Known Procedures
--- OUTSIDE RECORDS SUMMARY | 2025-01-09 08:09 | XMS_ITS | CONTINUITY OF CARE DOCUMENT ---
Author Name jessica lopez Address Unknown Organization [facility] Address [id number] [place] [address] [address] [place] [address] Phone [phone] Care Team Providers Care Ice Maker Name Role Phone DANIEL WHYTE MD Unavailable [phone] DANIEL WHYTE MD Unavailable [phone] INSURANCE PROVIDERS Payer name Policy type / Coverage type [facility] alliance party ID [facility] [id number]
[2025-01-09 12:57] LABS: Alanine Aminotransferase 37 U/L (6-35); Albumin Level 4.1 g/dL (3.5-5.1); Alkaline Phosphatase 105 U/L (38-126); Anion Gap 7 mmol/L (4-12); Aspartate Amino Transferase 89 U/L (14-36); Bilirubin,Total 0.4 mg/dL (0.2-1.3); Blood Urea Nitrogen 20 mg/dL (7-17); Calcium 9.5 mg/dL (8.4-10.2); Carbon Dioxide 32 mmol/L (22-30); Chloride 99 mmol/L (98-107); Cholesterol 134 mg/dL (0-200); Estimated Glomerular Filt Rate > 60; Glucose 75 mg/dL (65-110); HDL Direct 53 mg/dL; Potassium 4.4 mmol/L (3.4-5.0); Sodium 138 mmol/L (137-145); Triglycerides 90 mg/dL (<150)
[2025-01-09 13:02] LABS: Hematocrit 40.8 % (37.0-47.0); Hemoglobin 12.9 g/dL (12.0-15.0); Mean Corpuscular HGB Conc 31.6 g/dl (32-36); Mean Corpuscular Hemoglobin 32.1 pg (26-34); Mean Corpuscular Volume 101.5 fl (80-100); Platelet Count Result 280 k/mm3 (150-375); Red Blood Count 4.02 M/mm3 (4.2-5.4); Red Cell Distribution Width 12.4 % (11.5-14.5); White Blood Count 5.8 K/mm3 (4.5-10.0)
[2025-01-09 13:08] LABS: LDL Cholesterol Direct 46 mg/dL
[2025-01-09 13:42] LABS: Hemoglobin A1C 5.3 % (<5.7)
== END 2025-01-09 08:00 | disposition home or self-care (01) ==
LOC: ANHGOSHLAB 08:01
PROVIDERS: PCP Family Medicine; Visit Provider Nurse Practitioner
DX: E78.5 Hyperlipidemia, unspecified (principal); R73.03 Prediabetes; Z86.73 Personal history of transient ischemic attack (TIA), and cerebral infarction without residual deficits
CPT/HCPCS: 36415; 80053; 80061; 83036; 85027

== ENCOUNTER 2025-04-11 12:04 | Emergency (ER) | payer MEDICARE, SELFPAY ==
--- NOTE | 2025-04-11 12:17 | ED_ITS ---
HPI - URI/Sore Throat General Chief Complaint: Upper Respiratory Infection Stated Complaint: congestion Time Seen by Provider: 04/11/25 12:42 Source: patient, RN notes reviewed and old records reviewed Mode of arrival: ambulatory Limitations: no limitations History of Present Illness HPI Narrative: 69-year-old female presents to the [facility] with 7-10 day history of sinus congestion. Over the last several days has increased in pain and has turned yellow to green. Has taken Robitussin using her in a vase and taking Benadryl with no relief. Denies fevers Reports generalized sinus pain, bilateral ear pressure Related Data Home Medications ?Medication ?Instructions ?Recorded ?Confirmed ?Last Taken ?Type calcium carbonate (Calcium 600) 600 mg PO DAILY 01/03/20 12/27/24 Unknown History cholecalciferol (vitamin D3) 100 4,000 unit PO DAILY 01/03/20 12/27/24 Unknown History mcg (4,000 unit) capsule ferrous fumarate 325 mg (106 mg 325 mg PO DAILY 01/15/21 12/27/24 Unknown History iron) tablet (Ferretts) Saccharomyces boulardii 250 mg 250 mg PO BID 01/28/22 12/27/24 Unknown History capsule (Daily Probiotic (S. boulardii)) magnesium 250 mg tablet 250 mg PO DAILY 01/30/24 12/27/24 Unknown History potassium gluconate 500 mg (83 mg) 500 mg PO DAILY 01/30/24 12/27/24 Unknown History tablet Allergies Allergy/AdvReac Type Severity Reaction Status Date / Time Sulfa (Sulfonamide Allergy Unknown Rash Verified 12/27/24 17:45 Antibiotics) Review of Systems Review of Systems: All systems reviewed & are unremarkable except as noted in HPI and below Constitutional: Constitutional: Reports no additional constitutional complaints ENT: Reports as per HPI, Reports otalgia, Reports sinus pain and Reports sinus pressure Cardiovascular: Cardiovascular: Reports no additional cardiovascular complaints, Denies chest pain and Denies dyspnea Respiratory: Respiratory: Reports no additional respiratory complaints, Denies chest congestion, Denies cough and Denies dyspnea Musculoskeletal: Musculoskeletal: Reports no additional musculoskeletal complaints Integumentary/Breasts: Skin/Breast: Reports system reviewed and no additional complaints, except as docu [facility] Past Medical History Medical History Sixth nerve palsy Seropositive rheumatoid arthritis History of vaginal delivery x 2 Acid reflux Stroke Hypertension Normal colonoscopy High cholesterol Surgical History Surgical History History of gastric surgery History of cholecystectomy History of endometrial ablation Family History Family History Sibling Hypertension Father Family history of malignant neoplasm of stomach Hypertension Cerebrovascular accident, Onset Age: 70 Grandparent Malignant neoplasm of prostate Family history of malignant neoplasm of breast Family history of cardiovascular disease Family history of malignant neoplasm of breast in first degree relative Mother Cerebrovascular accident Hypertension Other Family history of hearing loss Social History Social History Social History: Caffeine-daily coffee Smoking status: Never smoker Alcohol intake: current Alcohol use details: occasionally-wine Substance use: never Lack of Transportation: No Lack of Food: Never True Current Housing: I Have Housing Concerned About Future Housing: No Difficulty Paying Gas/Electric Bills: No Difficulty Paying for Meds: No Currently Unemployed: No Education: Master's Degree or Higher Difficulty w/ Childcare or Family Care: No Living arrangements: alone Occupation/Education: retired Gender identity (if verbalized by the patient): Female Sexual Orientation (if Verbalized by the Patient): Straight or Heterosexual Spiritual care concerns: No Agree to blood products: Yes Comments At the time of my signature, I reviewed and agree with the nursing past medical, surgical, social, and family history. There is no relevant family history pertinent to the patient complaint. Exam Const: General: cooperative, healthy appearing, comfortable, no acute distress, well developed, alert and well nourished Nutritional Appearance: well nourished and obese Orientation/consciousness: patient oriented x3 Limitations: no limitations HENMT: Head: normal to inspection Ears: hearing grossly normal bilaterally, external ears normal, TM's normal bilaterally, EAC's normal, mastoids normal and no periauricular adenopathy Face/Nose/Sinus: Normal external nose present, Nasal discharge present clear bilateral, face symmetric and sinus tenderness Mouth: Yes Normal oral and palatal mucosa present, Yes lip normal, Yes tongue normal and Yes moist mucous membranes Throat: posterior oropharynx normal, uvula midline, postnasal drainage and no uvular edema Eyes: General: appearance normal, both eyes and all related structures Alignment and Position: alignment normal Neck: Neck: normal visual inspection, full ROM, no lymphadenopathy and no meningeal signs Chest: Chest palpation & inspection: normal inspection of the chest Resp: Effort & Inspection: normal respiratory effort and able to speak in complete sentences Auscultation: clear to auscultation bilaterally, no crackles, no rales, no rhonchi and no wheezes Cardio: Rate: regular rate Skin: General skin exam: normal color and no rashes or lesions noted Neuro: General: patient oriented x3, gait normal, moves all extremities and no meningeal signs Cognition (Neuro): normal cognition Speech: normal speech Gait exam (Neuro): Normal gait present Extrem: General: normal to inspection, full ROM, capillary refill normal and normal gait Psych: Appearance: grossly normal and well kempt Mental Status: mental status grossly normal Speech and movement: Normal speech and movement present and Clear speech present Affect: normal affect Attitude: cooperative Course Course Level of Care: Express Care Visit Vital Signs Vital signs: Vital Signs Temperature 96.8 F L 04/11/25 12:23 Pulse Rate 80 04/11/25 12:23 Respiratory Rate 16 04/11/25 12:23 Blood Pressure 123/82 04/11/25 12:23 Pulse Oximetry 97 04/11/25 12:23 Temperature 96.8 F L 04/11/25 12:23 Pulse Rate 80 04/11/25 12:23 Respiratory Rate 16 04/11/25 12:23 Blood Pressure 123/82 04/11/25 12:23 Pulse Oximetry 97 04/11/25 12:23 Reviewed MDM - URI/Sore Throat MDM Narrative Medical decision making narrative: Patient sitting in exam room. Patient is nontoxic, vitals are stable. Patient with 7-10 day history of sinus pressure. Discussed probable viral, will cover for secondary bacterial infection. Patient appropriate for outpatient treatment with close follow-up Discharge instructions reviewed with patient, as well as provided in writing per nursing staff. The instructions also include specific and strict return/GO TO THE ER as well as f/u information. All questions have been answered, and the patient deny any further questions with discharge and discharge plan. Some parts of this dictation were generated by voice recognition software and may contain typographical and/or grammatical inaccuracies. Differential Diagnosis Differential diagnosis: Likely upper respiratory infection, otitis media, sinusitis, viral infection, bronchitis, influenza and pharyngitis Critical Care Time Critical Care Time Critical Care Time: No Discharge Plan Discharge Clinical Impression: Sinusitis Patient Disposition: Home Condition: Stable Instructions: Antibiotic Form, Sinusitis (ED) Additional Instructions: It is very important to treat your symptoms. Drink plenty of water, Gatorade, Pedialyte, ice pops or Jell-O. -take Tylenol as needed for pain -Antihistamine medication such as Zyrtec/Claritin/Anna during the day can help improve symptoms. -doing daily nasal irrigations can help relieve pressure your sinuses. Things like a Neti pot -Use Flonase twice a day for 5 days then daily to help reduce the inflammation and dry up your sinuses. -You can also use Coricidin HBP or Mucinex. Be sure to drink plenty of water with this medication at least 8 ounces with every dose and it is important to drink 8 to 10 glasses of water per day. Water is a natural decongestant -Frequent hand washing or hand gas processing plant operator is one of the best ways to prevent spread of infection. -Using a vaporizer or humidifier at night will also help thin secretions and help with coughing up phlegm. -Follow up with primary care provider in 7-10 days if condition is not improving - For new or worsening symptoms go directly to the nearest ER Patient Language: Gambian Prescriptions: New amoxicillin-pot clavulanate 875-125 mg tablet 1 tablet PO Q12H Qty: 14 0RF No Action Ferretts 325 mg (106 mg iron) tablet 325 mg PO DAILY albuterol sulfate [Ventolin HFA] 90 mcg/actuation HFA aerosol inhaler 2 puff inhalation Q4H PRN (Reason: shortness of breath or wheezing) Qty: 18 0RF potassium gluconate 500 mg (83 mg) tablet 500 mg PO DAILY magnesium 250 mg tablet 250 mg PO DAILY calcium carbonate [Calcium 600] 600 mg calcium (1,500 mg) tablet 600 mg PO DAILY cholecalciferol (vitamin D3) 4,000 unit capsule 4,000 unit PO DAILY Saccharomyces boulardii [Daily Probiotic (S. boulardii)] 250 mg capsule 250 mg PO BID nystatin 100,000 unit/gram cream 1 applic topical BID Qty: 60 4RF Zepbound 15 mg/0.5 mL pen injector 15 mg subcut WEEKLY Qty: 6 5RF rosuvastatin 10 mg tablet See Rx Instructions .ROUTE .COMPLEX Qty: 90 1RF Dose Instruction: TAKE ONE TABLET BY MOUTH ONCE DAILY Rx Instructions: TAKE ONE TABLET BY MOUTH ONCE DAILY buspirone 5 mg tablet See Rx Instructions .ROUTE .COMPLEX Qty: 180 1RF Dose Instruction: TAKE ONE TABLET BY MOUTH TWICE A DAY Rx Instructions: TAKE ONE TABLET BY MOUTH TWICE A DAY metoprolol tartrate 25 mg tablet See Rx Instructions .ROUTE .COMPLEX Qty: 180 1RF Dose Instruction: TAKE ONE TABLET BY MOUTH TWICE A DAY Rx Instructions: TAKE ONE TABLET BY MOUTH TWICE A DAY clopidogrel 75 mg tablet See Rx Instructions .ROUTE .COMPLEX Qty: 90 1RF Dose Instruction: TAKE ONE TABLET BY MOUTH ONCE DAILY Rx Instructions: TAKE ONE TABLET BY MOUTH ONCE DAILY Follow-up/Referrals: Maria Elena Gaffney DO [Primary Care Provider] - Time of Disposition: 12:49
[2025-04-11 12:23] VITALS: BP 123/82; PULSE 80; RESP 16; TEMP 36; O2SAT 97
== END 2025-04-11 12:56 | disposition home or self-care (01) ==
PROVIDERS: Emergency Provider Nurse Practitioner; PCP Family Medicine
DX: J32.9 Chronic sinusitis, unspecified (principal); I10 Essential (primary) hypertension; E78.00 Pure hypercholesterolemia, unspecified; K21.9 Gastro-esophageal reflux disease without esophagitis; M05.70 Rheumatoid arthritis with rheumatoid factor of unspecified site without organ or systems involvement
CPT/HCPCS: 99213; G0463

== ENCOUNTER 2025-05-14 08:51 | Outpatient (CLI) | payer MEDICARE, SELFPAY ==
--- OUTSIDE RECORDS SUMMARY | 2025-05-14 08:58 | XMS_ITS | Clinical Summary ---
Author Organization [facility] Address [address] Miken: Jeromy Prelude ADT [place] [id number] Care Team Providers Care Finishing Room Operator Name Role Phone Unavailable Primary Care Provider [...] daily. 180 Tablet 1 3 4:14 PM NURSING ADMIN 07/07/20 23 Active busPIRone (BUSPAR) 5 mg tablet Take 1 Tablet (5 mg) by mouth 2 times daily. 180 Tablet 1 3 4:14 PM NURSING ADMIN 07/07/20 23 Active ALPRAZolam (XANAX) 0.25 mg tablet Take 1 Tablet (0.25 mg) by mouth nightly as needed for sleep. 45 Tablet 3 4:14 PM NURSING ADMIN 10/06/20 23 Active tirzepatide, weight loss, (Zepbound) 2.5 mg/0.5 mL Pen Injector INJECT 2.5 MG UNDER THE SKIN ONCE WEEKLY FOR 4 WEEKS 2 mL 4 2:01 PM NURSING ADMIN 12/08/19 24 Active tirzepatide, weight loss, (Zepbound) 5 mg/0.5 mL Pen Injector Inject 5 mg by subcutaneous injection every 7 days. 2 mL 4 2:42 PM NURSING ADMIN 01/09/20 24 Active tirzepatide, weight loss, (Zepbound) [...] 4 1:25 PM CDT 06/05/20 24 Active ALPRAZolam (XANAX) 0.25 mg tablet [...] twice a day. 60 Gram 4 5 1:02 PM CDT 08/14/20 24 Active tirzepatide (Mounjaro) 15 mg/0.5 mL Pen Injector Inject 15 mg by subcutaneous injection every 7 days. 2 mL 08/22/20 24 Active methylPREDNISo lone (MEDROL DOSPACK) 4 mg Tablets, Dose Pack TAKE DIRECTED 21 Each 4 4:24 PM NURSING ADMIN 09/14/20 24 Active tiZANidine (ZANAFLEX) 4 mg Tablet Take 1 Tablet (4 mg) by mouth at bedtime as needed. 30 Tablet 3 5 11:58 AM CDT 09/18/20 24 Active tirzepatide, weight loss, (Zepbound) 15 mg/0.5 mL Pen Injector Inject 15 mg by subcutaneous injection every 7 days. 6 mL 5 5 3:30 PM CDT 12/17/19 25 Active rosuvastatin (CRESTOR) 10 mg tablet TAKE ONE TABLET BY MOUTH ONCE DAILY 90 Tablet 1 5 12:26 PM CDT 01/03/20 25 Active ALPRAZolam (XANAX) 0.25 mg tablet Take 1 Tablet (0.25 mg) by mouth daily at bedtime as needed for sleep. 90 Tablet 5 8:44 AM NURSING ADMIN 01/08/20 25 Active busPIRone (BUSPAR) 5 mg tablet TAKE ONE TABLET BY MOUTH TWICE A DAY 180 Tablet 1 5 7:08 PM CDT 01/17/20 25 Active metoprolol tartrate (LOPRESSOR) 25 mg tablet TAKE ONE TABLET BY MOUTH TWICE A DAY 180 Tablet 1 5 7:08 PM CDT 01/17/20 25 Active clopidogreL (PLAVIX) 75 mg Tablet Take 1 Tablet (75 mg) by mouth daily. 90 Tablet 1 5 3:03 PM CDT 03/27/20 25 Active nystatin (NYSTOP) 100,000 unit/gram powder Apply topically to the affected area(s) twice daily 30 Gram 05/13/20 25 Active amoxicillin-cl avulanate (AUGMENTIN) 875-125 mg tablet Take 1 Tablet by mouth every 12 hours for 7 days. 14 Tablet 5 1:20 PM CDT 04/11/20 25 025 nystatin (NYSTOP) 100,000 unit/gram powder APPLY TOPICALLY TWICE DAILY DIRECTED. 15 Gram 5 7:08 PM CDT 05/02/20 25 025 Discontinued Encounters Date Type Department Care Team Description 04/09/2025 External Device Data [facility] ABSTRACTION Provider, Abstract from Last 3 Months Immunizations Immunization Administration Dates Next Due (ADACEL/BOOSTRIX)(10 [...] (1 of 2) 2005 OSTEOPOROSIS SCREENING 2020 INFLUENZA VACCINE (#1) 2025 , 08/29/2023, 09/01/2022 RSV VACCINE (60+ or ) (1 - 1-dose 75+ series) 2030 DTAP/TDAP/TD VACCINES (2 - T d or Tdap) 07/04/2033 07/04/2023 Insurance RX [employer] (INTERNAL) [facility] RX AETNA Medicare Part D
[2025-05-14 12:26] LABS: Hematocrit 41.2 % (37.0-47.0); Hemoglobin 12.9 g/dL (12.0-15.0); Mean Corpuscular HGB Conc 31.3 g/dl (32-36); Mean Corpuscular Hemoglobin 31.5 pg (26-34); Mean Corpuscular Volume 100.7 fl (80-100); Platelet Count Result 246 k/mm3 (150-375); Red Blood Count 4.09 M/mm3 (4.2-5.4); White Blood Count 5.2 K/mm3 (4.5-10.0)
[2025-05-14 12:27] LABS: Alanine Aminotransferase 32 U/L (6-35); Albumin Level 4.3 g/dL (3.5-5.1); Alkaline Phosphatase 96 U/L (38-126); Anion Gap 7 mmol/L (4-12); Aspartate Amino Transferase 64 U/L (14-36); Bilirubin,Total 0.4 mg/dL (0.2-1.3); Blood Urea Nitrogen 18 mg/dL (7-17); Calcium 9.3 mg/dL (8.4-10.2); Carbon Dioxide 28 mmol/L (22-30); Chloride 104 mmol/L (98-107); Cholesterol 150 mg/dL (0-200); Estimated Glomerular Filt Rate > 60; Glucose 94 mg/dL (65-110); HDL Direct 58 mg/dL; Potassium 4.3 mmol/L (3.4-5.0); Sodium 139 mmol/L (137-145); Total Protein 7.2 g/dL (6.3-8.2); Triglycerides 120 mg/dL (<150)
[2025-05-14 12:57] LABS: Thyroid Stimulating Hormone 1.780 uIU/mL (0.465-4.680)
== END 2025-05-14 08:52 | disposition home or self-care (01) ==
LOC: ANHGOSHLAB 08:53
PROVIDERS: PCP Family Medicine; Visit Provider Family Medicine
DX: E78.5 Hyperlipidemia, unspecified (principal); R74.8 Abnormal levels of other serum enzymes; Z11.59 Encounter for screening for other viral diseases; I10 Essential (primary) hypertension; E66.9 Obesity, unspecified
CPT/HCPCS: 36415; 80053; 80061; 84443; 85027; 86803

== ENCOUNTER 2025-05-23 13:17 | Outpatient (CLI) | payer MEDICARE, SELFPAY ==
--- OUTSIDE RECORDS SUMMARY | 2025-05-23 13:22 | XMS_ITS | Clinical Summary ---
Author Organization [facility] Address [address] Miken: Jeromy Prelude ADT [place] [id number] Care Team Providers Care Montessori Paraprofessional Name Role Phone Unavailable Primary Care Provider [...] daily. 180 Tablet 1 3 4:14 PM STATE PILOT 07/07/20 23 Active busPIRone (BUSPAR) 5 mg tablet Take 1 Tablet (5 mg) by mouth 2 times daily. 180 Tablet 1 3 4:14 PM STATE PILOT 07/07/20 23 Active ALPRAZolam (XANAX) 0.25 mg tablet Take 1 Tablet (0.25 mg) by mouth nightly as needed for sleep. 45 Tablet 3 4:14 PM STATE PILOT 10/06/20 23 Active tirzepatide, weight loss, (Zepbound) 2.5 mg/0.5 mL Pen Injector INJECT 2.5 MG UNDER THE SKIN ONCE WEEKLY FOR 4 WEEKS 2 mL 4 2:01 PM STATE PILOT 12/08/19 24 Active tirzepatide, weight loss, (Zepbound) 5 mg/0.5 mL Pen Injector Inject 5 mg by subcutaneous injection every 7 days. 2 mL 4 2:42 PM STATE PILOT 01/09/20 24 Active tirzepatide, weight loss, (Zepbound) [...] TAKE DIRECTED 21 Each 4 4:24 PM STATE PILOT 09/14/20 24 Active tiZANidine (ZANAFLEX) 4 mg [...] for sleep. 90 Tablet 5 8:44 AM STATE PILOT 01/08/20 25 Active busPIRone (BUSPAR) 5 mg [...] the affected area(s) twice daily 30 Gram 5 2:33 PM CDT 05/13/20 25 Active nystatin (NYSTOP) 100,000 unit/gram powder APPLY TOPICALLY [...]
== END 2025-05-23 13:18 | disposition home or self-care (01) ==
LOC: ANHGOSHLAB 13:19
PROVIDERS: PCP Family Medicine; Visit Provider Family Medicine
DX: Z11.1 Encounter for screening for respiratory tuberculosis (principal)
CPT/HCPCS: 86480

== ENCOUNTER 2025-09-02 10:46 | Outpatient (CLI) | payer MEDICARE, SELFPAY ==
--- NOTE | ~2025-09-02 | XR_ITS ---
EXAMINATION: XR knee RT min 4V, 09/02/2025 10:56 CDT HISTORY: Pain in right knee x 6 months, no surg, injury several years COMPARISON: No comparisons available. Findings: No acute fracture or malalignment. Severe tricompartmental degenerative changes with small effusion Soft tissues unremarkable. Impression: No acute fracture or malalignment. Reviewed, dictated and finalized at location P. Impression: No acute fracture or malalignment.
== END 2025-09-02 10:47 | disposition home or self-care (01) ==
LOC: GOSHIMG 10:46
PROVIDERS: PCP Family Medicine; Visit Provider Family Medicine
DX: M25.561 Pain in right knee (principal)
CPT/HCPCS: 73564

== ENCOUNTER 2025-09-16 09:45 | Outpatient (CLI) | payer MEDICARE, SELFPAY ==
--- OUTSIDE RECORDS SUMMARY | 2025-09-16 10:25 | XMS_ITS | Clinical Summary ---
Author Organization [facility] Address [address] Miken: Jeromy Prelude ADT [place] [address] Care Team Providers Care Transformer Mechanic Name Role Phone Unavailable Primary Care Provider [...] daily. 180 Tablet 1 3 4:14 PM BLANKET INSPECTOR 07/07/20 23 Active busPIRone (BUSPAR) 5 mg tablet Take 1 Tablet (5 mg) by mouth 2 times daily. 180 Tablet 1 3 4:14 PM BLANKET INSPECTOR 07/07/20 23 Active ALPRAZolam (XANAX) 0.25 mg tablet Take 1 Tablet (0.25 mg) by mouth nightly as needed for sleep. 45 Tablet 3 4:14 PM BLANKET INSPECTOR 10/06/20 23 Active tirzepatide, weight loss, (Zepbound) 2.5 mg/0.5 mL Pen Injector INJECT 2.5 MG UNDER THE SKIN ONCE WEEKLY FOR 4 WEEKS 2 mL 4 2:01 PM BLANKET INSPECTOR 12/08/19 24 Active tirzepatide, weight loss, (Zepbound) 5 mg/0.5 mL Pen Injector Inject 5 mg by subcutaneous injection every 7 days. 2 mL 4 2:42 PM BLANKET INSPECTOR 01/09/20 24 Active tirzepatide, weight loss, (Zepbound) [...] TAKE DIRECTED 21 Each 4 4:24 PM BLANKET INSPECTOR 09/14/20 24 Active tiZANidine (ZANAFLEX) 4 mg Tablet Take 1 Tablet (4 mg) by mouth at bedtime as needed. 30 Tablet 3 5 11:58 AM CDT 09/18/20 24 Active rosuvastatin (CRESTOR) 10 mg tablet TAKE ONE TABLET BY MOUTH ONCE DAILY 90 Tablet 1 5 12:26 PM CDT 01/03/20 25 Active ALPRAZolam (XANAX) 0.25 mg tablet Take 1 Tablet (0.25 mg) by mouth daily at bedtime as needed for sleep. 90 Tablet 5 8:44 AM BLANKET INSPECTOR 01/08/20 25 Active busPIRone (BUSPAR) 5 mg [...] by mouth daily. 90 Tablet 1 5 4:34 PM CDT 03/27/20 25 Active nystatin (NYSTOP) 100,000 unit/gram powder Apply topically to the affected area(s) twice daily 30 Gram 5 2:33 PM CDT 05/13/20 25 Active ALPRAZolam (XANAX) 0.25 mg tablet Take 1 Tablet (0.25 mg) by mouth nightly as needed for sleep. 90 Tablet 5 12:28 PM CDT 06/11/20 25 Active rosuvastatin (CRESTOR) 10 mg tablet TAKE ONE TABLET BY MOUTH ONCE DAILY 90 Tablet 1 5 6:15 PM CDT 07/01/20 25 Active busPIRone (BUSPAR) 5 mg tablet TAKE ONE TABLET BY MOUTH TWICE A DAY 180 Tablet 1 5 1:10 PM CDT 08/09/20 25 Active metoprolol tartrate (LOPRESSOR) 25 mg tablet TAKE ONE TABLET BY MOUTH TWICE A DAY 180 Tablet 1 5 1:10 PM CDT 08/09/20 25 Active tirzepatide, weight loss, (Zepbound) 15 mg/0.5 mL Pen Injector Inject 0.5 mL (15 mg) by subcutaneous injection every 7 days. 6 mL 1 5 4:39 PM CDT 08/30/20 25 Active tirzepatide, weight loss, (Zepbound) 15 mg/0.5 mL Pen Injector Inject 15 mg by subcutaneous injection every 7 days. 6 mL 5 5 12:18 PM CDT 12/17/19 25 025 Discontinued Encounters Date Type Department Care Team Description 07/16/2025 External Device Data [facility] ABSTRACTION Provider, Abstract from Last 3 Months Immunizations Immunization Administration Dates Next Due (ADACEL/BOOSTRIX)(10 YR UP) TDAP VACCINE, 0.5ML, IM 07/04/2023 INFLUENZA VACCINE HIGH DOSE QUADRIVALENT 65 YR UP PF IM 08/29/2023,09/01/2022 INFLUENZA VACCINE HIGH DOSE TRIVALENT SPLIT VIRUS, (65 YR UP), 0.5ML (PF), IM 07/31/2025,08/15/2024 Social History Tobacco Use Types Packs/Day Years [...] or Tdap) 07/04/2033 07/04/2023 INFLUENZA VACCINE Completed 07/31/2025, , 08/29/2023, Additional history exists Insurance RX [employer] (INTERNAL) [facility] RX [employer] Medicare Part D
[2025-09-16 12:57] LABS: Hematocrit 40.6 % (37.0-47.0); Hemoglobin 12.9 g/dL (12.0-15.0); Mean Corpuscular HGB Conc 31.8 g/dl (32-36); Mean Corpuscular Hemoglobin 32.6 pg (26-34); Mean Corpuscular Volume 102.5 fl (80-100); Platelet Count Result 255 k/mm3 (150-375); Red Blood Count 3.96 M/mm3 (4.2-5.4); White Blood Count 5.3 K/mm3 (4.5-10.0)
[2025-09-16 13:13] LABS: Alanine Aminotransferase 27 U/L (6-35); Albumin Level 4.1 g/dL (3.5-5.1); Alkaline Phosphatase 100 U/L (38-126); Anion Gap 4 mmol/L (4-12); Aspartate Amino Transferase 53 U/L (14-36); Bilirubin,Total 0.5 mg/dL (0.2-1.3); Blood Urea Nitrogen 19 mg/dL (7-17); Calcium 9.4 mg/dL (8.4-10.2); Carbon Dioxide 30 mmol/L (22-30); Chloride 104 mmol/L (98-107); Cholesterol 163 mg/dL (0-200); Estimated Glomerular Filt Rate > 60; Glucose 93 mg/dL (65-110); HDL Direct 59 mg/dL; Potassium 4.4 mmol/L (3.4-5.0); Sodium 138 mmol/L (137-145); Total Protein 6.9 g/dL (6.3-8.2); Triglycerides 112 mg/dL (<150)
[2025-09-16 13:47] LABS: Hemoglobin A1C 5.5 % (<5.7)
[2025-09-16 13:48] LABS: Thyroid Stimulating Hormone 1.330 uIU/mL (0.465-4.680)
== END 2025-09-16 09:46 | disposition home or self-care (01) ==
PROVIDERS: PCP Family Medicine; Visit Provider Family Medicine
DX: E78.5 Hyperlipidemia, unspecified (principal); R74.8 Abnormal levels of other serum enzymes; R73.03 Prediabetes; I10 Essential (primary) hypertension; E66.9 Obesity, unspecified
CPT/HCPCS: 36415; 80053; 80061; 83036; 84443; 85027

== ENCOUNTER 2025-10-11 00:29 | Day surgery (SDC) | payer MEDICARE, SELFPAY ==
[2025-10-02 09:13] VITALS: BMI 37.8
--- NOTE | 2025-10-02 09:29 | PC.NURSE ---
Spoke with patient regarding medication Plavix. Patient verbalizes understanding that the last dose is to be taken on 10/04/25 and the Endoscopist will instruct them when to restart after the procedure.
[2025-10-11 11:14] VITALS: BP 170/78; PULSE 70; RESP 18; TEMP 36.6; O2SAT 100
[2025-10-11] MEDS: LACTATED RINGERS 1,000 ML 150 ML IV CONT (11:22)
--- NOTE | 2025-10-11 12:38 | WPDANESEPPF ---
Anes - Initial Pre Proc Eval Procedure: Operation Date: 10/11/25 12:30 Proposed Procedures p Screening Colonoscopy - Kevin Becerra MD Date/Time: 10/11/25 12:38 Surgeon: Kevin Becerra MD Pre Op Diagnosis: Screening Patient Data Age: 70 Gender: F Height: 1.55 m Weight: 92.2 kg Last Vital Signs Temp 97.8 F 10/11/25 11:14 Pulse 70 10/11/25 11:14 Resp 18 10/11/25 11:14 BP 170/78 H 10/11/25 11:14 Pulse Ox 100 10/11/25 11:14 O2 Del Method Room Air 10/11/25 11:14 Allergies Allergy/AdvReac Type Severity Reaction Status Date / Time Sulfa (Sulfonamide Allergy Unknown Rash Verified 10/02/25 09:09 Antibiotics) Home Medications ?Medication ?Instructions ?Recorded ?Confirmed ?Type calcium carbonate (Calcium 600) 600 mg PO DAILY 01/03/20 10/11/25 History cholecalciferol (vitamin D3) 100 4,000 unit PO DAILY 01/03/20 10/11/25 History mcg (4,000 unit) capsule albuterol sulfate 90 mcg/actuation 2 puff inhalation Q4H PRN 09/15/20 10/02/25 Rx aerosol inhaler (Ventolin HFA) shortness of breath or wheezing #18 grams ferrous fumarate 325 mg (106 mg 325 mg PO DAILY 01/15/21 10/11/25 History iron) tablet (Ferretts) Saccharomyces boulardii 250 mg 250 mg PO BID 01/28/22 10/02/25 History capsule (Daily Probiotic (S. boulardii)) magnesium 250 mg tablet 250 mg PO DAILY 01/30/24 10/11/25 History potassium gluconate 500 mg (83 mg) 500 mg PO DAILY 01/30/24 10/11/25 History tablet nystatin 100,000 unit/gram topical 1 applic topical BID #60 grams 08/14/24 10/11/25 Rx cream clopidogrel 75 mg tablet See Rx Instructions .Route 03/27/25 10/11/25 Rx .COMPLEX #90 tabs nystatin 100,000 unit/gram topical 1 applic topical BID #30 grams 05/13/25 10/11/25 Rx powder alprazolam 0.25 mg tablet 0.25 mg PO QHS PRN sleep #90 tabs 06/11/25 10/11/25 Rx rosuvastatin 10 mg tablet See Rx Instructions .Route 07/01/25 10/11/25 Rx .COMPLEX #90 tabs buspirone 5 mg tablet See Rx Instructions .Route 08/09/25 10/11/25 Rx .COMPLEX #180 tabs metoprolol tartrate 25 mg tablet See Rx Instructions .Route 08/09/25 10/11/25 Rx .COMPLEX #180 tabs tirzepatide (weight loss) 15 15 mg (0.5 mL) subcut WEEKLY #6 mL 08/30/25 10/02/25 Rx mg/0.5 mL subcutaneous pen injector (Zepbound) Patient hx anesthesia problems: none Family hx anesthesia problems: none Results Review: All pre-operative results and documents have been reviewed as part of the pre-operative evaluation. [facility] Past Medical History Medical History Sixth nerve palsy Seropositive rheumatoid arthritis History of vaginal delivery x 2 Acid reflux Stroke Hypertension Normal colonoscopy High cholesterol Surgical History Surgical History History of gastric surgery History of cholecystectomy History of endometrial ablation Family History Family History Sibling Hypertension Father Family history of malignant neoplasm of stomach Hypertension Cerebrovascular accident, Onset Age: 70 Grandparent Malignant neoplasm of prostate Family history of malignant neoplasm of breast Family history of cardiovascular disease Family history of malignant neoplasm of breast in first degree relative Mother Cerebrovascular accident Hypertension Other Family history of hearing loss Social History Social History Social History: Caffeine-daily coffee Smoking status: Never smoker Alcohol intake: current Alcohol use details: occasionally-wine Substance use: never Lack of Transportation: No Lack of Food: Never True Current Housing: I Have Housing Concerned About Future Housing: No Difficulty Paying Gas/Electric Bills: No Difficulty Paying for Meds: No Currently Unemployed: No Education: Master's Degree or Higher Difficulty w/ Childcare or Family Care: No Living arrangements: alone Occupation/Education: retired Gender identity (if verbalized by the patient): Female Sexual Orientation (if Verbalized by the Patient): Straight or Heterosexual Spiritual care concerns: No Agree to blood products: Yes Anes - Eval Final PreProcedure Day of Procedure 10/11/25 12:38 Patient weight: obese Lungs: normal air movement Airway: Mallampati scale class II Neurological: alert and oriented Last oral intake: >/= 8 hours ASA classification: III Emergent: no Anesthetic plan: proceed Anesthesia type and monitoring: general GIVS and standard monitoring Results Review: All pre-operative results and documents have been reviewed as part of the pre-operative evaluation. HTN, hyperlipidemia, BMI 38, hx of CVA, no residual other than mild L hand weakness. 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 Informed Consent: The patient's anesthetic plan and its attendant risks and benefits were discussed with the patient/family/POA. Questions were solicited and answers provided to the satisfaction of the patient/family/POA.
--- NOTE | 2025-10-11 12:48 | PM.IMHP2 ---
H&P: HPI History of Present Illness Date/Time: 10/11/25 12:48 Chief Complaint: Family history of colon cancer Narrative: This patient has family history of colorectal cancer. Recently a sister and a brother had been diagnosed with colorectal cancer. Her last colonoscopy was about 7 years ago. Review of Systems Review of Systems: All systems reviewed & are unremarkable except as noted in HPI and below PMFSH Past Medical History Medical History Sixth nerve palsy Seropositive rheumatoid arthritis History of vaginal delivery x 2 Acid reflux Stroke Hypertension Normal colonoscopy High cholesterol Surgical History Surgical History History of gastric surgery History of cholecystectomy History of endometrial ablation Family History Family History Sibling Hypertension Father Family history of malignant neoplasm of stomach Hypertension Cerebrovascular accident, Onset Age: 70 Grandparent Malignant neoplasm of prostate Family history of malignant neoplasm of breast Family history of cardiovascular disease Family history of malignant neoplasm of breast in first degree relative Mother Cerebrovascular accident Hypertension Other Family history of hearing loss Social History Social History Social History: Caffeine-daily coffee Smoking status: Never smoker Alcohol intake: current Alcohol use details: occasionally-wine Substance use: never Lack of Transportation: No Lack of Food: Never True Current Housing: I Have Housing Concerned About Future Housing: No Difficulty Paying Gas/Electric Bills: No Difficulty Paying for Meds: No Currently Unemployed: No Education: Master's Degree or Higher Difficulty w/ Childcare or Family Care: No Living arrangements: alone Occupation/Education: retired Gender identity (if verbalized by the patient): Female Sexual Orientation (if Verbalized by the Patient): Straight or Heterosexual Spiritual care concerns: No Agree to blood products: Yes Meds Home Medications and Allergies Home Medications ?Medication ?Instructions ?Recorded ?Confirmed ?Type calcium carbonate (Calcium 600) 600 mg PO DAILY 01/03/20 10/11/25 History cholecalciferol (vitamin D3) 100 4,000 unit PO DAILY 01/03/20 10/11/25 History mcg (4,000 unit) capsule albuterol sulfate 90 mcg/actuation 2 puff inhalation Q4H PRN 11/09/20 11/26/25 Rx aerosol inhaler (Ventolin HFA) shortness of breath or wheezing #18 grams ferrous fumarate 325 mg (106 mg 325 mg PO DAILY 01/15/21 10/11/25 History iron) tablet (Ferretts) Saccharomyces boulardii 250 mg 250 mg PO BID 01/28/22 10/02/25 History capsule (Daily Probiotic (S. boulardii)) magnesium 250 mg tablet 250 mg PO DAILY 01/30/24 10/11/25 History potassium gluconate 500 mg (83 mg) 500 mg PO DAILY 01/30/24 10/11/25 History tablet nystatin 100,000 unit/gram topical 1 applic topical BID #60 grams 08/14/24 10/11/25 Rx cream clopidogrel 75 mg tablet See Rx Instructions .Route 03/27/25 10/11/25 Rx .COMPLEX #90 tabs nystatin 100,000 unit/gram topical 1 applic topical BID #30 grams 05/13/25 10/11/25 Rx powder alprazolam 0.25 mg tablet 0.25 mg PO QHS PRN sleep #90 tabs 06/11/25 10/11/25 Rx rosuvastatin 10 mg tablet See Rx Instructions .Route 07/01/25 10/11/25 Rx .COMPLEX #90 tabs buspirone 5 mg tablet See Rx Instructions .Route 08/09/25 10/11/25 Rx .COMPLEX #180 tabs metoprolol tartrate 25 mg tablet See Rx Instructions .Route 08/09/25 10/11/25 Rx .COMPLEX #180 tabs tirzepatide (weight loss) 15 15 mg (0.5 mL) subcut WEEKLY #6 mL 08/30/25 10/02/25 Rx mg/0.5 mL subcutaneous pen injector (Zepbound) Allergies Allergy/AdvReac Type Severity Reaction Status Date / Time Sulfa (Sulfonamide Allergy Unknown Rash Verified 10/02/25 09:09 Antibiotics) Vital Signs Vital Signs - 24 hr 10/11/25 11:14 Temperature 97.8 F Pulse Rate 70 Respiratory Rate 18 Blood Pressure 170/78 H Pulse Oximetry 100 Oxygen Delivery Room Air Exam Const: General: cooperative and healthy appearing Resp: Effort & Inspection: normal respiratory effort and able to speak in complete sentences Auscultation: clear to auscultation bilaterally Cardio: Rate: regular rate Rhythm: regular rhythm GI: Inspection: normal to inspection GI Palp: No No hepatosplenomegaly present Auscultation: normal bowel sounds Rectal Exam: deferred Skin: General skin exam: normal color Psych: Appearance: grossly normal Mental Status: mental status grossly normal Assessment and Plan Assessment and plan (1) Family history of colon cancer: Code(s): Z80.0 - Family history of malignant neoplasm of digestive organs Status: Acute Assessment and Plan: The patient is deemed a good candidate for the procedure. Consent signed. Will proceed. Prior Studies I have reviewed the following patient records and this information was taken into consideration when formulating the assessment and plan.: previous labs, previous ER visits, previous hospitalizations and previous clinic visits
[2025-10-11 13:10] VITALS: BP 90/45; PULSE 68; RESP 17; O2SAT 98
[2025-10-11 13:20] VITALS: BP 120/51; PULSE 66; RESP 23; O2SAT 100
[2025-10-11 13:30] VITALS: BP 130/55; PULSE 68; RESP 21; O2SAT 100
== END 2025-10-11 13:47 | disposition home or self-care (01) ==
PROVIDERS: PCP Family Medicine; Referring Provider Nurse Practitioner; Visit Provider Internal Medicine Gastroenterology
PROC: 0DJD8ZZ Inspection of Lower Intestinal Tract, Via Natural or Artificial Opening Endoscopic (ICD-10-PCS; CPT 45378; principal; 2025-10-11 12:30)
DX: Z12.11 Encounter for screening for malignant neoplasm of colon (principal); I10 Essential (primary) hypertension; E78.00 Pure hypercholesterolemia, unspecified; K21.9 Gastro-esophageal reflux disease without esophagitis; M05.9 Rheumatoid arthritis with rheumatoid factor, unspecified; G58.8 Other specified mononeuropathies; E66.9 Obesity, unspecified; Z68.38 Body mass index [BMI] 38.0-38.9, adult; Z79.51 Long term (current) use of inhaled steroids; Z79.02 Long term (current) use of antithrombotics/antiplatelets; Z79.85 Long-term (current) use of injectable non-insulin antidiabetic drugs; Z98.84 Bariatric surgery status; Z90.49 Acquired absence of other specified parts of digestive tract; Z98.891 History of uterine scar from previous surgery; Z86.79 Personal history of other diseases of the circulatory system; Z86.73 Personal history of transient ischemic attack (TIA), and cerebral infarction without residual deficits; Z80.0 Family history of malignant neoplasm of digestive organs; Z80.42 Family history of malignant neoplasm of prostate; Z80.3 Family history of malignant neoplasm of breast; Z82.49 Family history of ischemic heart disease and other diseases of the circulatory system
CPT/HCPCS: G0105; J2003; J2704; J7120